=== PATIENT | female | born 2005 | race Caucasian/White ===

== ENCOUNTER 2024-06-30 00:23 | Observation (INO) ==
[2024-06-30] MEDS: cefTRIAXone 1 gm/50 mL D5W 1 GM/50 ML BAG IV ONE (03:00)
[2024-06-30 03:13] LABS: ABS Basophils 0.1 10^3/uL (0.0-0.1); ABS Eosinophils 0.1 10^3/uL (0.0-0.5); ABS Lymphocytes 2.7 10^3/uL (1.0-4.8); ABS Neutrophils 7.9 10^3/uL (1.5-7.6); ABS Nucleated RBC 0.01 10^3/ul; Eosinophil % 0.8 %; Hematocrit 35.9 % (35-45); Hemoglobin 12.1 g/dL (11.5-14.3); Lymphocyte % 23.1 %; Mean Corpuscular Hemoglobin 31.3 pg (27-33); Mean Corpuscular Hgb Conc 33.8 g/dL (31-36); Mean Corpuscular Volume 92.6 fL (80-97); Mean Platelet Volume 8.4 fL (7.5-11.2); Nucleated Red Blood Cells % 0.1 %/100WBC (0.0-0.8); Platelet Count 275 10^3/uL (150-450); Red Blood Count 3.87 10^6/uL (3.63-4.92); Red Cell Distribution Width 13.2 % (12-17); White Blood Count 11.9 10^3/uL (3.8-11.8)
[2024-06-30] MEDS: Lactated Ringers 1000 ml BAG 1,000 ML IV ONE ×2 (03:14→08:02)
[2024-06-30 04:07] LABS: Albumin 4.1 g/dL (3.2-5.2); Albumin/Globulin Ratio 1.6 (1-3); Calcium 9.4 mg/dL (8.6-10.3); Creatinine, Serum 0.66 mg/dL (0.51-0.95); Globulin 2.6 g/dL (2-4); Potassium 3.8 mmol/L (3.5-5.0); Total Bilirubin 0.5 mg/dL (0.2-1.0); Total Protein 6.7 g/dL (6.4-8.9); eGFR CKD-EPI 127.9 (>60)
[2024-06-30] MEDS: Lactated Ringers 1000 ml BAG 1,000 ML IV SCH ×2 (04:39→06:19)
[2024-06-30 04:59] LABS: Urine Appearance Turbid; Urine Bilirubin Negative (Negative); Urine Blood Trace (Negative); Urine Color Yellow; Urine Glucose Negative (Negative); Urine Ketones Negative (Negative); Urine Nitrite Negative (Negative); Urine Protein Negative (Negative); Urine Specific Gravity 1.024 (1.002-1.030); Urine Urobilinogen Negative (Negative); Urine pH 6.5 (5.0-8.0)
[2024-06-30] MEDS: Morphine 2 MG/ML SYRINGE IV PRN (07:55)
[2024-06-30] MEDS: Morphine 4 MG/ML VIAL (1 ml) IV ONE (08:02)
[2024-06-30 08:04] LABS: ABS Eosinophils 0.1 10^3/uL (0.0-0.5); ABS Lymphocytes 2.7 10^3/uL (1.0-4.8); ABS Monocytes 0.7 10^3/uL (0.0-0.9); ABS Neutrophils 5.6 10^3/uL (1.5-7.6); Eosinophil % 0.9 %; Hematocrit 32.6 % (35-45); Hemoglobin 11.3 g/dL (11.5-14.3); Lymphocyte % 29.4 %; Mean Corpuscular Hgb Conc 34.7 g/dL (31-36); Mean Platelet Volume 8.7 fL (7.5-11.2); Platelet Count 248 10^3/uL (150-450); Red Blood Count 3.54 10^6/uL (3.63-4.92); Red Cell Distribution Width 12.9 % (12-17); White Blood Count 9.1 10^3/uL (3.8-11.8)
[2024-06-30 12:16] VITALS: BP 101/53
[2024-06-30] MEDS ORDERED: cefTRIAXone 1 gm/50 mL D5W 1 GM/50 ML BAG IV SCH (21:00)
== END 2024-06-30 13:19 | disposition home or self-care (01) ==
LOC: EDHOLD 00:23 → ED 00:23 → SUATTDRO 02:47 → EDHOLD 12:45 → ED 13:18 → EDHOLD 13:18
PROVIDERS: ADMIT Internal Medicine; ATTEND Internal Medicine